=== PATIENT | female | born 1945 | race Caucasian/White ===

== ENCOUNTER 2016-07-05 16:42 | Observation (INO) | payer BC ==
[~2016-07-05] VITALS: Ht 165.1 cm; Wt 61.2 kg
[~2016-07-05 16:42] MED LIST: ASPI81TA28 PO; FISH OIL 1000MG PO; FLUT50SP14 NAE; GLUC500C4 PO; LEVO1TAB50 PO; LSN/2025 PO; MIRT30TA2 PO; RED600TA
[2016-07-05 18:03] LABS: BASO % 0.3 %; BASO ABS # 0.03 K/uL (0-0.2); COMPLETE YES; EOS % 2.2 %; HEMATOCRIT 36.7 % (37-47); IG% 0.1 %; LYMPH % 27.5 %; LYMPH ABS # 2.45 K/uL (1.2-3.4); MEAN CELL VOLUME 85.7 fL (80-100); MEAN CORPUSCULAR HEMOGLOBIN 29.7 pg (25-34); MEAN CORPUSCULAR HGB CONC 34.6 g/dl (32-36); MEAN PLATELET VOLUME 10.6 fL (7.4-10.4); MONO % 6.9 %; PLATELET COUNT 234 K/uL (130-400); RED BLOOD COUNT 4.28 M/uL (4.2-5.4)
[2016-07-05 18:04] LABS: URINE APPEARANCE CLEAR (CLEAR); URINE BILIRUBIN NEG (NEG); URINE COLOR YELLOW; URINE NITRITE NEG (NEG); URINE PH 5.5 (4.5-7.5); URINE SPECIFIC GRAVITY 1.005 (1.000-1.030); UROBILINOGEN NEG (NEG); ZZUR CULT IF INDIC CLEAN CATCH NO
[2016-07-05] MEDS ORDERED: FLUT0.15 NAE (18:04)
[2016-07-05 18:07] LABS: MANUAL MICROSCOPIC REQUIRED? NO; REVIEW REQ? NO
[2016-07-05] MEDS ORDERED: LEVO50TA6 PO (18:07)
[2016-07-05] MEDS ORDERED: VITA400C3 PO (18:11)
[2016-07-05] MEDS ORDERED: CAT PO (18:14)
[2016-07-05] MEDS ORDERED: REDTAB PO (18:15)
[2016-07-05 18:19] LABS: ALT/SGPT 25 U/L (12-78); BLOOD UREA NITROGEN 15 mg/dl (7-18); BUN/CREATININE RATIO 22.3 (10-20); CALCIUM 8.8 mg/dl (8.5-10.1); CARBON DIOXIDE 29 mmol/L (21-32); CHLORIDE 101 mmol/L (98-107); CREATININE 0.65 mg/dl (0.60-1.20); GLUCOSE 98 mg/dl (70-99); POTASSIUM 3.5 mmol/L (3.5-5.1); SODIUM 137 mmol/L (136-145)
[2016-07-05] MEDS ORDERED: CHOL1000 PO (18:19)
[2016-07-05] MEDS ORDERED: CALC-214 PO (18:22)
[2016-07-05] MEDS ORDERED: CALC500T64 (18:22)
[2016-07-05 18:24] LABS: ALKALINE PHOSPHATASE 115 U/L (45-117); AST/SGOT 15 U/L (15-37); CKMB/CK RATIO 0.9 (0-3.0)
[2016-07-05] MEDS ORDERED: MISC1CAP66 PO (18:24)
[2016-07-05] MEDS ORDERED: TURM500C2 PO (18:29)
[2016-07-05 18:30] LABS: INR 0.9 (0.9-1.1); PARTIAL THROMBOPLASTIN RATIO 1.1; PROTHROMBIN TIME (PATIENT) 9.9 SECONDS (9.0-12.0)
[2016-07-05] MEDS ORDERED: COEN100C6 PO (18:31)
[2016-07-05] MEDS ORDERED: CYAN500T PO (18:32)
[2016-07-05] MEDS ORDERED: ASCO100061 PO (18:33)
--- NOTE | 2016-07-05 18:53 | DIAGNOSTIC IMAGING REPORT ---
SINGLE VIEW CHEST CLINICAL HISTORY: Atypical chest pain. FINDINGS: An AP, portable, upright chest radiograph is compared to study dated 11/22/2011. The examination is degraded by portable technique and patient rotation. The heart is mildly enlarged and there is atherosclerotic calcification of the thoracic aorta. The pulmonary vasculature is noncongested. Chronic interstitial thickening is unchanged. No airspace consolidation, large pleural effusion, or Pneumothorax is seen. The skeletal structures are osteopenic. The bony thorax is grossly intact. IMPRESSION: Mild cardiac enlargement with no acute cardiopulmonary abnormality. Electronically signed by: Ortega Shrestha M.D. 07/05/2016 6:51 PM Dictated Date/Time: 07/05/2016 6:51 PM
[2016-07-05] MEDS ORDERED: NITROGLYCERIN 0.4 MG SL PER TAB CHARGE SL PRN (20:15)
[2016-07-05] MEDS ORDERED: MoRPHine SULFATE 2 MG/ML CARP IV PRN (20:15)
[2016-07-05] MEDS ORDERED: ACETAMINOPHEN 325 MG TAB PO PRN (20:15)
--- NOTE | 2016-07-05 20:22 | EMERGENCY ROOM VISIT NOTE ---
History Report prepared by Mitchell: Qian Forrest Under the Supervision of: Dr. Bruce Garrido M.D. First contact with patient: 17:20 Chief Complaint: CARDIAC ASSESSMENT Stated Complaint: COMPRESSION IN CHEST, RINGING EARS, DIZZY-REFERRED Nursing Triage Summary: Patient reports "lightheaded, nausea states this has been going on for weeks, I've had burning in my chest and thought it was indigestion, I took a prilosec for a couple days and now the burning is gone but I still feel dizzy and pressure in my neck and across my chest. History of Present Illness The patient is a 71 year old female who presents to the Emergency Room with complaints of persistent burning in her chest for the past couple of days. She reports the discomfort was most intense 3 days ago. She experienced a similar burning sensation in her chest about 1 year ago which was found to be indigestion. She found relief with Prilosec at the time. She has taken Prilosec for the past 2 days which has relieved much of the burning, but a sensation of pressure remains in her chest. She reports experiencing congestion or pressure in her ears and neck. She also reports feeling dizzy and lightheaded. She experienced some vertigo 1 week ago. Pt denies LOC, headache, fevers, chills, diaphoresis, visual changes, breathing difficulties, nausea, vomiting, abdominal pain, back pain, melena, hematochezia, urinary symptoms, numbness, lymphadenopathy, rash, or other complaints. Source of History: patient Onset: couple days ago Position: chest Quality: burning Timing: other (persistent) Modifying Factors (Relieving): other (Prilosec) Note: Pt reports dizziness, lightheadedness, pressure in neck and ears. Review of Systems See HPI for pertinent positives and negatives. A total of ten systems were reviewed and were otherwise negative. Past Medical & Surgical Medical Problems: (1) History of basal cell carcinoma (2) History of breast cancer (3) Hypercholesteremia (4) Hypertension (5) Hypothyroidism (6) Osteoporosis Surgical Problems: (1) Status post appendectomy (2) Status post colonoscopy (3) Status post partial mastectomy (4) Status post tonsillectomy Family History Heart disease Social History Smoking Status: Former Smoker Drug Use: none Marital Status: Occupation Status: employed Current/Historical Medications Scheduled Ascorbic Acid (Ascorbic Acid), 1,000 MG PO DAILY Aspirin (Aspirin Ec), 81 MG PO 3XWK Calcium W/ Magnesium (Calcium & Magnesium), 1 TAB PO DAILY Cat's Claw (Uncaria [place]) (Cats Claw), Unknown Dose PO DAILY Cholecalciferol (Vitamin D3), 1 TAB PO DAILY Coenzyme Q10 (Ubidecarenone) (Co-Enzyme Q10), 100 MG PO DAILY Cyanocobalamin (Vitamin B-12), 500 MCG PO DAILY Fluticasone Propionate (Nasal) (Flonase Allergy Relief), 2 SPRAYS SAHRA DAILY Glucosamine Sulfate (Glucosamine), 1 CAPSULES PO DAILY Hctz/Lisinopril (Zestoretic 20MG/25MG), 1 TAB PO DAILY Levothyroxine Sodium (Levothyroxine Sodium), 1 TAB PO DAILY Misc Natural Products (Joint Support), 1 CAP PO DAILY Red [place] Extract (Promensil), Unknown Dose PO DAILY Red Yeast Rice Extract (Red Yeast Rice), 600 DAILY Turmeric (Curcuma Longa) (Curcumin 95), Unknown Dose PO DAILY Vitamin E (Vitamin E 400 Iu), 400 INTER.UNIT PO DAILY [Fish Oil 1000MG], 1 CAPSULE PO DAILY Allergies Coded Allergies: No Known Allergies (Unverified , 07/05/16) Physical Exam Vital Signs Date Time Temp Pulse Resp B/P Pulse Ox O2 Delivery O2 Flow Rate FiO2 07/05/16 19:00 70 14 122/70 100 07/05/16 18:18 66 07/05/16 18:18 63 16 117/72 97 Room Air 07/05/16 18:17 97 Room Air 07/05/16 16:46 36.8 69 20 148/83 99 Room Air Physical Exam GENERAL: Awake, alert, well-appearing, in no distress HENT: Normocephalic, atraumatic. Oropharynx unremarkable. TMs are normal. EYES: Normal conjunctiva. Sclera non-icteric. NECK: Supple. No nuchal rigidity. FROM. No JVD. RESPIRATORY: Clear to auscultation. CARDIAC: Regular rate, normal rhythm. Extremities warm and well perfused. Pulses equal. ABDOMEN: Soft, non-distended. No tenderness to palpation. No rebound or guarding. No masses. RECTAL: Deferred. MUSCULOSKELETAL: Chest examination reveals no tenderness. The back is symmetrical on inspection without obvious abnormality. There is no CVA tenderness to palpation. No joint edema. LOWER EXTREMITIES: Calves are equal size bilaterally and non-tender. No edema. No discoloration. NEURO: Normal sensorium. No sensory or motor deficits noted. SKIN: No rash or jaundice noted. Medical Decision & Procedures ER Provider Diagnostic Interpretation: X ray results as stated below per my interpretation and radiologist interpretation. SINGLE VIEW CHEST CLINICAL HISTORY: Atypical chest pain. FINDINGS: An AP, portable, upright chest radiograph is compared to study dated 11/22/2011. The examination is degraded by portable technique and patient rotation. The heart is mildly enlarged and there is atherosclerotic calcification of the thoracic aorta. The pulmonary vasculature is noncongested. Chronic interstitial thickening is unchanged. No airspace consolidation, large pleural effusion, or Pneumothorax is seen. The skeletal structures are osteopenic. The bony thorax is grossly intact. IMPRESSION: Mild cardiac enlargement with no acute cardiopulmonary abnormality. Electronically signed by: Ortega Shrestha M.D. 07/05/2016 6:51 PM Dictated Date/Time: 07/05/2016 6:51 PM Laboratory Results 07/05/16 17:44 Red Blood Count 4.28, Mean Corpuscular Volume 85.7, Mean Corpuscular Hemoglobin 29.7, Mean Corpuscular Hemoglobin Concent 34.6, Mean Platelet Volume 10.6, Neutrophils (%) (Auto) 63.0, Lymphocytes (%) (Auto) 27.5, Monocytes (%) (Auto) 6.9, Eosinophils (%) (Auto) 2.2, Basophils (%) (Auto) 0.3, Neutrophils # (Auto) 5.60, Lymphocytes # (Auto) 2.45, Monocytes # (Auto) 0.61, Eosinophils # (Auto) 0.20, Basophils # (Auto) 0.03 07/05/16 17:44 Test 07/05/16 17:44 White Blood Count 8.90 K/uL (4.8-10.8) Red Blood Count 4.28 M/uL (4.2-5.4) Hemoglobin 12.7 g/dL (12.0-16.0) Hematocrit 36.7 % (37-47) Mean Corpuscular Volume 85.7 fL (80-100) Mean Corpuscular Hemoglobin 29.7 pg (25-34) Mean Corpuscular Hemoglobin Concent 34.6 g/dl (32-36) Platelet Count 234 K/uL (130-400) Mean Platelet Volume 10.6 fL (7.4-10.4) Neutrophils (%) (Auto) 63.0 % Lymphocytes (%) (Auto) 27.5 % Monocytes (%) (Auto) 6.9 % Eosinophils (%) (Auto) 2.2 % Basophils (%) (Auto) 0.3 % Neutrophils # (Auto) 5.60 K/uL (1.4-6.5) Lymphocytes # (Auto) 2.45 K/uL (1.2-3.4) Monocytes # (Auto) 0.61 K/uL (0.11-0.59) Eosinophils # (Auto) 0.20 K/uL (0-0.5) Basophils # (Auto) 0.03 K/uL (0-0.2) RDW Standard Deviation 43.0 fL (36.4-46.3) RDW Coefficient of Variation 13.7 % (11.5-14.5) Immature Granulocyte % (Auto) 0.1 % Immature Granulocyte # (Auto) 0.01 K/uL (0.00-0.02) Prothrombin Time 9.9 SECONDS (9.0-12.0) Prothromb Time International Ratio 0.9 (0.9-1.1) Activated Partial Thromboplast Time 27.3 SECONDS (21.0-31.0) Partial Thromboplastin Ratio 1.1 Urine Color YELLOW Urine Appearance CLEAR (CLEAR) Urine pH 5.5 (4.5-7.5) Urine Specific [place] 1.005 (1.000-1.030) Urine Protein NEG (NEG) Urine Glucose (UA) NEG (NEG) Urine Ketones NEG (NEG) Urine Occult Blood NEG (NEG) Urine Nitrite NEG (NEG) Urine Bilirubin NEG (NEG) Urine Urobilinogen NEG (NEG) Urine Leukocyte Esterase NEG (NEG) Anion Gap 7.0 mmol/L (3-11) Est Creatinine Clear Calc Drug Dose 71.4 ml/min Estimated GFR () 103.5 Estimated GFR (Non- 89.3 BUN/Creatinine Ratio 22.3 (10-20) Calcium Level 8.8 mg/dl (8.5-10.1) Total Bilirubin 0.4 mg/dl (0.2-1) Direct Bilirubin < 0.1 mg/dl (0-0.2) Aspartate Amino Transf (AST/SGOT) 15 U/L (15-37) Alanine Aminotransferase (ALT/SGPT) 25 U/L (12-78) Alkaline Phosphatase 115 U/L (45-117) Total Creatine Kinase 65 U/L (26-192) Creatine Kinase MB 0.6 ng/ml (0.5-3.6) Creatine Kinase MB Ratio 0.9 (0-3.0) Troponin I < 0.015 ng/ml (0-0.045) Total Protein 7.3 gm/dl (6.4-8.2) Albumin 3.5 gm/dl (3.4-5.0) Lipase 114 U/L (73-393) Laboratory results reviewed by me ECG Indication: weakness Rate (beats per minute): 64 Rhythm: normal sinus Findings: no acute ischemic change, no ectopy ED Course 1740: The patient was evaluated in room A12. A complete history and physical exam was performed. 1914: Upon reexamination, the patient was resting comfortably. I discussed the test results and treatment plan with her. She verbalized understanding and agreement. The patient will be evaluated for further management. 1954: I discussed the patient's case with Dr. Walker, [facility] - hospitalist. The patient will be evaluated for further treatment and disposition. Medical Decision Triage Nursing notes reviewed. The patient's presentation and history were concerning for chest discomfort. EtioloGies such as cardiac ischemia, aortic dissection, pulmonary embolism, pneumonia, pneumothorax, musculoskeletal, infections, gastrointestinal, as well as others were entertained. The patient was evaluated. She was doing well. Her examination did not reveal any focal findings. She had no dizziness that was reproducible. She is currently chest pain-free. ECG was nonischemic. CBC, chemistry panel, cardiac markers, LFTs and lipase were unremarkable. Chest imaging was unremarkable. The patient was reassessed. She is still chest pain-free. She has multiple cardiac risk factors as her father had coronary disease, she was a previous smoker, she also notes a history of high cholesterol and hypertension. Given all these findings I discussed further evaluation and management in the hospital. The patient was in agreement. Consultation was made with internal medicine. The patient was evaluated in the Emergency Room for further treatment. The chart was completed utilizing Dragon Speech voice recognition software. Grammatical errors, random word insertions, pronoun errors, and incomplete sentences are an occasional consequence of this system due to software limitations, ambient noise, and hardware issues. Any formal questions or concerns about the content, text, or information contained within the body of this dictation should be directly addressed to the physician for clarification. Consults Time Called: 1919 Consulting Physician: Tanja Harmon - hospitalist Returned Call: 1954 Discussed the patient's case. The patient will be evaluated for further treatment and disposition. Impression Primary Impression: Substernal chest pain Additional Impression: Fatigue Scribe Attestation The scribe's documentation has been prepared under my direction and personally reviewed by me in its entirety. I confirm that the note above accurately reflects all work, treatment, procedures, and medical decision making performed by me. Departure Information Dispostion Being Evaluated By Hospitalist Referrals Gayle Guillermo M.D. (PCP) Patient Instructions My [facility] Problem Qualifiers
--- NOTE | 2016-07-05 20:54 | History and Physical ---
History & Physical Date & Time of Service: Jul 05, 2016 at ~ 20:00 . Chief Complaint: chest pressure . Primary Care Physician: Gayle Guillermo M.D. . History of Present Illness Source: patient, clinic records, hospital records 71 [address]O female followed by Dr. Guillermo. History of hypertension, dyslipidemia, and other problems noted below. Stress echo 2014 showed good exercise tolerance and no evidence of stress- induced ischemia. Former smoker- quit several years ago. Physically active, walks 5-6 miles a day. Developed chest discomfort 4 days prior to admission. Symptoms started in the evening after eating lopes for dinner. Initially developed right-sided chest pressure which later seemed to spread across the center of her chest. [place] somewhat lightheaded. No associated dyspnea, nausea, vomiting, diaphoresis. Has had intermittent chest pressure since then, doesn't seem to be related to exertion. Took some omeprazole which may have helped some. Risk factors for ischemic heart disease: hypertension, dyslipidemia, former smoker, family history. . Past Medical/Surgical History Chronic Medical Problems: (1) History of basal cell carcinoma Status: Chronic (2) History of breast cancer Permanent Comment: left breast, s/p lumpectomy + XRT 1985 Status: Chronic (3) Hypercholesteremia Status: Chronic (4) Hypertension Status: Chronic (5) Hypothyroidism Status: Chronic (6) Osteoporosis Status: Chronic Surgical Problems: (1) Status post appendectomy Status: Chronic (2) Status post colonoscopy Status: Chronic (3) Status post partial mastectomy Permanent Comment: left breast 1985 Status: Chronic (4) Status post tonsillectomy Status: Chronic . Family History FATHER Coronary artery disease Parkinson's disease MOTHER Breast cancer GRANDMOTHER Colon cancer AUNT Stroke UNCLE Heart disease Social History Smoking Status: Former Smoker Alcohol Use: occasionally Drug Use: none Marital Status: Occupational Status: employed Immunizations History of Influenza Vaccine: Yes History of Pneumococcal: Yes Multi-Drug Resistant Organisms History of MDRO: No Allergies Coded Allergies: No Known Allergies (Unverified , 07/05/16) Home Medications Scheduled Ascorbic Acid (Ascorbic Acid), 1,000 MG PO DAILY Aspirin (Aspirin Ec), 81 MG PO 3XWK Calcium W/ Magnesium (Calcium & Magnesium), 1 TAB PO DAILY Cat's Claw (Uncaria Tomentosa) (Cats Claw), Unknown Dose PO DAILY Cholecalciferol (Vitamin D3), 1 TAB PO DAILY Coenzyme Q10 (Ubidecarenone) (Co-Enzyme Q10), 100 MG PO DAILY Cyanocobalamin (Vitamin B-12), 500 MCG PO DAILY Fluticasone Propionate (Nasal) (Flonase Allergy Relief), 2 SPRAYS SAHRA DAILY Glucosamine Sulfate (Glucosamine), 1 CAPSULES PO DAILY Hctz/Lisinopril (Zestoretic 20MG/25MG), 1 TAB PO DAILY Levothyroxine Sodium (Levothyroxine Sodium), 1 TAB PO DAILY Misc Natural Products (Joint Support), 1 CAP PO DAILY Red [place] Extract (Promensil), Unknown Dose PO DAILY Red Yeast Rice Extract (Red Yeast Rice), 600 DAILY Turmeric (Curcuma Longa) (Curcumin 95), Unknown Dose PO DAILY Vitamin E (Vitamin E 400 Iu), 400 INTER.UNIT PO DAILY [Fish Oil 1000MG], 1 CAPSULE PO DAILY Review of Systems Constitutional: No chills, No fever, No weight loss Eyes: No worsening of vision ENT: + problem reported (URI + vertigo ~ 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) Respiratory: No cough, No shortness of breath, No wheezing Cardiovascular: + problem reported (as noted above in HPI) Abdomen: No GI bleeding, No diarrhea, No nausea, No pain, No vomiting Musculoskeletal: + joint pain (hands + shoulders) Genitourinary - Female: + urinary incontinence (stress incontinence), No dysuria, No hematuria Neurologic: + vertigo (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, resolved), No weakness Endocrine: No excessive thirst, No excessive urination Hematologic / Lymphatic: No abnormal bleeding/bruising, No swollen lymph nodes Integumentary: No itch, No new/changing skin lesions, No rash Allergic / Immunologic: + seasonal allergies Physical Exam Vital Signs Date Time Temp Pulse Resp B/P Pulse Ox O2 Delivery O2 Flow Rate FiO2 07/05/16 20:18 70 16 117/72 100 07/05/16 19:00 70 14 122/70 100 07/05/16 18:18 66 07/05/16 18:18 63 16 117/72 97 Room Air 07/05/16 18:17 97 Room Air 07/05/16 16:46 36.8 69 20 148/83 99 Room Air General Appearance: WD/WN, no apparent distress Head: normocephalic, atraumatic Eyes: normal inspection, PERRL, EOMI, sclerae normal (conjunctivae pink) ENT: normal ENT inspection, hearing grossly normal, pharynx normal Neck: supple, no adenopathy, thyroid normal, no JVD, trachea midline Respiratory/Chest: lungs clear, no accessory muscle use Cardiovascular: regular rate, rhythm, no edema, no gallop, no JVD, no murmur, normal peripheral pulses, + pertinent finding (carotids 2/2 bilat without bruits ) Abdomen/GI: normal bowel sounds, non tender, soft, no organomegaly, no pulsatile mass Extremities/Musculoskelatal: normal inspection, no calf tenderness, normal capillary refill, no pedal edema Neurologic/Psych: trimming department blocker II-XII nml as tested (PERRL, EOMI, no facial palsy, no dysarthria), no motor/sensory deficits (motor strength extremities intact), alert, normal mood/affect, oriented x 3 Skin: normal color, warm/dry, no rash Lymphatic: no adenopathy Diagnostics Laboratory Results Results Past 24 Hours Test 07/05/16 17:44 Range/Units White Blood Count 8.90 4.8-10.8 K/uL Red Blood Count 4.28 4.2-5.4 M/uL Hemoglobin 12.7 12.0-16.0 g/dL Hematocrit 36.7 37-47 % Mean Corpuscular Volume 85.7 80-100 fL Mean Corpuscular Hemoglobin 29.7 25-34 pg Mean Corpuscular Hemoglobin Concent 34.6 32-36 g/dl Platelet Count 234 130-400 K/uL Mean Platelet Volume 10.6 7.4-10.4 fL Neutrophils (%) (Auto) 63.0 % Lymphocytes (%) (Auto) 27.5 % Monocytes (%) (Auto) 6.9 % Eosinophils (%) (Auto) 2.2 % Basophils (%) (Auto) 0.3 % Neutrophils # (Auto) 5.60 1.4-6.5 K/uL Lymphocytes # (Auto) 2.45 1.2-3.4 K/uL Monocytes # (Auto) 0.61 0.11-0.59 K/uL Eosinophils # (Auto) 0.20 0-0.5 K/uL Basophils # (Auto) 0.03 0-0.2 K/uL RDW Standard Deviation 43.0 36.4-46.3 fL RDW Coefficient of Variation 13.7 11.5-14.5 % Immature Granulocyte % (Auto) 0.1 % Immature Granulocyte # (Auto) 0.01 0.00-0.02 K/uL Prothrombin Time 9.9 9.0-12.0 SECONDS Prothromb Time International Ratio 0.9 0.9-1.1 Activated Partial Thromboplast Time 27.3 21.0-31.0 SECONDS Partial Thromboplastin Ratio 1.1 Urine Color YELLOW Urine Appearance CLEAR CLEAR Urine pH 5.5 4.5-7.5 Urine Specific [place] 1.005 1.000-1.030 Urine Protein NEG NEG Urine Glucose (UA) NEG NEG Urine Ketones NEG NEG Urine Occult Blood NEG NEG Urine Nitrite NEG NEG Urine Bilirubin NEG NEG Urine Urobilinogen NEG NEG Urine Leukocyte Esterase NEG NEG Sodium Level 137 136-145 mmol/L Potassium Level 3.5 3.5-5.1 mmol/L Chloride Level 101 98-107 mmol/L Carbon Dioxide Level 29 21-32 mmol/L Anion Gap 7.0 3-11 mmol/L Blood Urea Nitrogen 15 7-18 mg/dl Creatinine 0.65 0.60-1.20 mg/dl Est Creatinine Clear Calc Drug Dose 71.4 ml/min Estimated GFR () 103.5 Estimated GFR (Non- 89.3 BUN/Creatinine Ratio 22.3 10-20 Random Glucose 98 70-99 mg/dl Calcium Level 8.8 8.5-10.1 mg/dl Total Bilirubin 0.4 0.2-1 mg/dl Direct Bilirubin < 0.1 0-0.2 mg/dl Aspartate Amino Transf (AST/SGOT) 15 15-37 U/L Alanine Aminotransferase (ALT/SGPT) 25 12-78 U/L Alkaline Phosphatase 115 45-117 U/L Total Creatine Kinase 65 26-192 U/L Creatine Kinase MB 0.6 0.5-3.6 ng/ml Creatine Kinase MB Ratio 0.9 0-3.0 Troponin I < 0.015 0-0.045 ng/ml Total Protein 7.3 6.4-8.2 gm/dl Albumin 3.5 3.4-5.0 gm/dl Lipase 114 73-393 U/L Diagnostic Radiology Chest x-ray reviewed by the undersigned and interpreted by Radiology: SINGLE VIEW CHEST FINDINGS: An AP, portable, upright chest radiograph is compared to study dated 11/22/2011. The examination is degraded by portable technique and patient rotation. The heart is mildly enlarged and there is atherosclerotic calcification of the thoracic aorta. The pulmonary vasculature is noncongested. Chronic interstitial thickening is unchanged. No airspace consolidation, large pleural effusion, or Pneumothorax is seen. The skeletal structures are osteopenic. The bony thorax is grossly intact. IMPRESSION: Mild cardiac enlargement with no acute cardiopulmonary abnormality. Electronically signed by: Ortega Shrestha M.D. 07/05/2016 6:51 PM . EKG EKG performed at 16:53 reviewed and demonstrated NSR at 60 / minute, no acute ST or T-wave abnormalities. . Impression Assessment and Plan CHEST PAIN Multiple risk factors for ischemic heart disease. However, symptoms are not typical for ischemic pain. Troponin in ED normal. No acute EKG changes. Check serial troponins and EKG's. Consider stress test in a.m. if acute UT ruled out. Consider GI etiology of symptoms. LFT's and lipase normal. Consider further GI evaluation if symptoms persist and cardiac w/u negative. Ongoing risk factor modification. Check lipid profile. CARDIOMEGALY Noted on chest x-ray. Check rest echo. HYPERTENSION Continue lisinopril / HCTZ. DYSLIPIDEMIA Check lipid profile. Patient would prefer not to take statins. Continue dietary management and supplements. HYPOTHYROIDISM Check TSH. VTE PROPHYLAXIS Low risk for VTE. SQ enoxaparin. Ambulate. RESUSCITATION STATUS Discussed with patient. She has a living will. She would like resuscitation attempted in the event of a cardiopulmonary arrest if there is a reasonable chance of a meaningful recovery, but does not want prolonged extraordinary measures if prognosis is poor. Therefore, code status = "Level 1" (full resuscitation). DISPOSITION Observation status on Telemetry Unit. Expected discharge to home. Family Medicine follow-up with Dr. Guillermo. . VTE Prophylaxis VTE Risk Assessment Done? Y/N: Yes Risk Level: Low Given or contraindicated: Enoxaparin (Lovenox)SQ
[2016-07-05 21:05] VITALS: BP 160/88; PULSE 63; TEMP 36.8; O2SAT 99; Ht 165.1 cm; Wt 61.2 kg
[2016-07-05] MEDS ORDERED: IV FLUIDS COMPLETED PRN (22:45)
[2016-07-05 23:18] VITALS: BP 126/69; PULSE 69; TEMP 36.6; O2SAT 99
[2016-07-06 00:01] VITALS: O2SAT 99
[2016-07-06 04:28] VITALS: BP 118/74; PULSE 66; TEMP 36.6; O2SAT 98
[2016-07-06] MEDS ORDERED: LEVOTHYROXINE 50 MCG TAB PO SCH (06:00)
[2016-07-06 06:15] LABS: CHOLESTEROL 201 mg/dl (0-200); CHOLESTEROL/HDL RATIO 3.3; HDL CHOLESTEROL 61 mg/dl; LDL CHOLESTEROL CALCULATED 122 mg/dl; TRIGLYCERIDES 92 mg/dl (0-150); VERY LOW DENSITY LIPOPROT CALC 18 mg/dl
[2016-07-06 07:54] VITALS: BP 96/64; PULSE 85; TEMP 36.5; O2SAT 96
[2016-07-06 08:09] VITALS: BP 100/51; PULSE 56; TEMP 36.5; O2SAT 97
[2016-07-06] MEDS ORDERED: LISINOPRIL/HCTZ 20/25MG TAB PO SCH ×2 (09:00→21:00)
[2016-07-06] MEDS ORDERED: ENOXAPARIN 40 MG/0.4 ML SYR SC SCH (09:00)
[2016-07-06] MEDS ORDERED: PANTOprazole SOD 40 MG TAB PO SCH (09:00)
[2016-07-06] MEDS ORDERED: ASPIRIN 81 MG ECTAB PO SCH (09:00)
--- NOTE | 2016-07-06 11:23 | Progress Note ---
Internal Med Progress Note Date of Service: Jul 06, 2016. Provider Documentation: SUBJECTIVE: Patient is doing well. Chest pain has resolved. Just came back from stress test No nausea, vomiting, heart burn, diarrhea, abdominal pain, SOB. Eager to be discharged home OBJECTIVE: Vital Signs-as noted below Exam: General-AAOX3, no distress Neck-Supple Lungs-AEBE, no wheezing, crackles Heart-S1, S2 normal, No murmurs Abdomen- Soft, non tender, non distended, BS present Extremities-No edema Lab data as noted below. ASSESSMENT & PLAN: CHEST PAIN, ATYPICAL : Resolved Multiple risk factors for ischemic heart disease. Possibly GERD ? -S/P Stress Echo today -EKG X 2- no acute changes, Troponin x 3- negative -Lipid panel : LDL -122 CARDIOMEGALY Noted on chest x-ray. -Echo done- follow up official results HYPERTENSION -Stable -Continue lisinopril / HCTZ. DYSLIPIDEMIA Patient would prefer not to take statins. -Continue dietary management and supplements. -LDL - 122 HYPOTHYROIDISM TSH- Normal VTE PROPHYLAXIS Low risk for VTE. -SQ enoxaparin. -Ambulate. RESUSCITATION STATUS Discussed with patient by Dr Walker. She has a living will. She would like resuscitation attempted in the event of a cardiopulmonary arrest if there is a reasonable chance of a meaningful recovery, but does not want prolonged extraordinary measures if prognosis is poor. Therefore, code status = "Level 1" (full resuscitation). DISPOSITION Observation status on Telemetry Unit. Eager to be discharged home today Family Medicine follow-up with Dr. Guillermo. . Vital Signs: Date Time Temp Pulse Resp B/P Pulse Ox O2 Delivery O2 Flow Rate FiO2 07/06/16 08:45 Room Air 07/06/16 08:09 36.5 56 18 100/51 97 Room Air 07/06/16 07:54 36.5 85 20 96/64 96 Nasal Cannula 2.0 07/06/16 04:28 36.6 66 18 118/74 98 07/06/16 04:00 Room Air 07/06/16 00:01 99 Room Air 07/05/16 23:18 36.6 69 16 126/69 99 Room Air 07/05/16 21:05 36.8 63 18 160/88 99 Room Air 07/05/16 20:18 70 16 117/72 100 07/05/16 19:00 70 14 122/70 100 07/05/16 18:18 66 07/05/16 18:18 63 16 117/72 97 Room Air 07/05/16 18:17 97 Room Air 07/05/16 16:46 36.8 69 20 148/83 99 Room Air Lab Results: Results Past 24 Hours Test 07/05/16 17:44 07/05/16 22:37 07/06/16 05:04 Range/Units White Blood Count 8.90 4.8-10.8 K/uL Red Blood Count 4.28 4.2-5.4 M/uL Hemoglobin 12.7 12.0-16.0 g/dL Hematocrit 36.7 37-47 % Mean Corpuscular Volume 85.7 80-100 fL Mean Corpuscular Hemoglobin 29.7 25-34 pg Mean Corpuscular Hemoglobin Concent 34.6 32-36 g/dl Platelet Count 234 130-400 K/uL Mean Platelet Volume 10.6 7.4-10.4 fL Neutrophils (%) (Auto) 63.0 % Lymphocytes (%) (Auto) 27.5 % Monocytes (%) (Auto) 6.9 % Eosinophils (%) (Auto) 2.2 % Basophils (%) (Auto) 0.3 % Neutrophils # (Auto) 5.60 1.4-6.5 K/uL Lymphocytes # (Auto) 2.45 1.2-3.4 K/uL Monocytes # (Auto) 0.61 0.11-0.59 K/uL Eosinophils # (Auto) 0.20 0-0.5 K/uL Basophils # (Auto) 0.03 0-0.2 K/uL RDW Standard Deviation 43.0 36.4-46.3 fL RDW Coefficient of Variation 13.7 11.5-14.5 % Immature Granulocyte % (Auto) 0.1 % Immature Granulocyte # (Auto) 0.01 0.00-0.02 K/uL Prothrombin Time 9.9 9.0-12.0 SECONDS Prothromb Time International Ratio 0.9 0.9-1.1 Activated Partial Thromboplast Time 27.3 21.0-31.0 SECONDS Partial Thromboplastin Ratio 1.1 Urine Color YELLOW Urine Appearance CLEAR CLEAR Urine pH 5.5 4.5-7.5 Urine Specific [place] 1.005 1.000-1.030 Urine Protein NEG NEG Urine Glucose (UA) NEG NEG Urine Ketones NEG NEG Urine Occult Blood NEG NEG Urine Nitrite NEG NEG Urine Bilirubin NEG NEG Urine Urobilinogen NEG NEG Urine Leukocyte Esterase NEG NEG Sodium Level 137 136-145 mmol/L Potassium Level 3.5 3.5-5.1 mmol/L Chloride Level 101 98-107 mmol/L Carbon Dioxide Level 29 21-32 mmol/L Anion Gap 7.0 3-11 mmol/L Blood Urea Nitrogen 15 7-18 mg/dl Creatinine 0.65 0.60-1.20 mg/dl Est Creatinine Clear Calc Drug Dose 71.4 ml/min Estimated GFR () 103.5 Estimated GFR (Non- 89.3 BUN/Creatinine Ratio 22.3 10-20 Random Glucose 98 70-99 mg/dl Calcium Level 8.8 8.5-10.1 mg/dl Total Bilirubin 0.4 0.2-1 mg/dl Direct Bilirubin < 0.1 0-0.2 mg/dl Aspartate Amino Transf (AST/SGOT) 15 15-37 U/L Alanine Aminotransferase (ALT/SGPT) 25 12-78 U/L Alkaline Phosphatase 115 45-117 U/L Total Creatine Kinase 65 26-192 U/L Creatine Kinase MB 0.6 0.5-3.6 ng/ml Creatine Kinase MB Ratio 0.9 0-3.0 Troponin I < 0.015 < 0.015 < 0.015 0-0.045 ng/ml Total Protein 7.3 6.4-8.2 gm/dl Albumin 3.5 3.4-5.0 gm/dl Lipase 114 73-393 U/L Triglycerides Level 92 0-150 mg/dl Cholesterol Level 201 0-200 mg/dl HDL Cholesterol 61 mg/dl LDL Cholesterol, Calculated 122 mg/dl VLDL Cholesterol, Calculated 18 mg/dl Cholesterol/HDL Ratio 3.3 Thyroid Stimulating Hormone (TSH) 1.490 0.300-4.500 uIu/ml
--- NOTE | 2016-07-06 11:32 | Discharge Instructions ---
Discharge Instructions Date of Service Jul 06, 2016. Admission Reason for Admission: Chest Pain Discharge Discharge Diagnosis / Problem: 1. Chest pain, acute ischemia ruled out Discharge Goals Goal(s): Diagnostic testing, Therapeutic intervention Activity Recommendations Activity Limitations: resume your previous activity . Instructions / Follow-Up Instructions / Follow-Up No changes in medications FOLLOW UP 1. Follow up with Dr Gayle Guillermo on 07/09/16 at 12:50 PM Current Hospital Diet Patient's current hospital diet: AHA Diet (Heart Healthy) Discharge Diet Recommended Diet: AHA Diet (Heart Healthy), Low Sodium Diet (2gm Na) Pending Studies Studies pending at discharge: no Laboratory Results Lipid Panel Test 07/06/16 05:04 Range/Units Triglycerides Level 92 0-150 mg/dl Cholesterol Level 201 H 0-200 mg/dl HDL Cholesterol 61 mg/dl Cholesterol/HDL Ratio 3.3 LDL Cholesterol, Calculated 122 mg/dl Medical Emergencies . Who to Call and When: Medical Emergencies: If at any time you feel your situation is an emergency, please call 911 immediately. . Non-Emergent Contact Non-Emergency issues call your: Primary Care Provider . . "Provider Documentation" section prepared by Eliza Murphy. VTE Core Measure Inpt VTE Proph given/why not?: Enoxaparin (Lovenox)SQ
--- NOTE | 2016-07-06 11:35 | Discharge Summary ---
Discharge Summary Date of Service Jul 06, 2016. Discharge Summary Admission Date: Jul 05, 2016 at 20:04 Discharge Date: Jul 06, 2016 Discharge Disposition: Home Principal Diagnosis: 1. Chest pain, acute ischemia ruled out Secondary Diagnoses/Problems: 1. HTN 2. Dyslipidemia 3. Hypothyroidism Procedures: Tele monitoring Stress Echo Serial EKG Serial Troponin Consultations: None Pending Studies/Follow-Up: No changes in medications FOLLOW UP Dr Gayle Guillermo on 07/09/16 at 12:50 PM Admission Information HPI (per Admitting provider): 71 YO female followed by Dr. Guillermo. History of hypertension, dyslipidemia, and other problems noted below. Stress echo 2014 showed good exercise tolerance and no evidence of stress- induced ischemia. Former smoker- quit several years ago. Physically active, walks 5-6 miles a day. Developed chest discomfort 4 days prior to admission. Symptoms started in the evening after eating lopes for dinner. Initially developed right-sided chest pressure which later seemed to spread across the center of her chest. [place] somewhat lightheaded. No associated dyspnea, nausea, vomiting, diaphoresis. Has had intermittent chest pressure since then, doesn't seem to be related to exertion. Took some omeprazole which may have helped some. Risk factors for ischemic heart disease: hypertension, dyslipidemia, former smoker, family history. . Physical Exam (per Admitting): General Appearance: WD/WN, no apparent distress Head: normocephalic, atraumatic Eyes: normal inspection, PERRL, EOMI, sclerae normal (conjunctivae pink) ENT: normal ENT inspection, hearing grossly normal, pharynx normal Neck: supple, no adenopathy, thyroid normal, no JVD, trachea midline Respiratory/Chest: lungs clear, no accessory muscle use Cardiovascular: regular rate, rhythm, no edema, no gallop, no JVD, no murmur , normal peripheral pulses, + pertinent finding (carotids 2/2 bilat without bruits) Abdomen/GI: normal bowel sounds, non tender, soft, no organomegaly, no pulsatile mass Extremities/Musculoskelatal: normal inspection, no calf tenderness, normal capillary refill, no pedal edema 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 Possibly GERD ? -S/P Stress Echo today- Discussed results with Dr Mi verbally- did well achieved 85% max predicted HR on treadmill, no ischemia , but did have atypical chest pain at the end of test (official results pending). Given the fact that chest pain is atypical, EKG X 2 neg, Trop x 3 negative, no reversible ischemia noted on stress echocardiogram, unlikely to be cardiac -Lipid panel : LDL -122 CARDIOMEGALY Noted on chest x-ray. -Echo done- follow up official results HYPERTENSION -Stable -Continue lisinopril / HCTZ. DYSLIPIDEMIA Patient would prefer not to take statins. -Continue dietary management and supplements. -LDL - 122 HYPOTHYROIDISM TSH- Normal VTE PROPHYLAXIS Low risk for VTE. -SQ enoxaparin. -Ambulate. RESUSCITATION STATUS Discussed with patient by Dr Wakler. She has a living will. She would like resuscitation attempted in the event of a cardiopulmonary arrest if there is a reasonable chance of a meaningful recovery, but does not want prolonged extraordinary measures if prognosis is poor. Therefore, code status = "Level 1" (full resuscitation). DISPOSITION Observation status on Telemetry Unit. Ok to be discharged home Eager to be discharged home Family Medicine follow-up with Dr. Guillermo. . Total time spent on discharge = 25 minutes This includes examination of the patient, discharge planning, medication reconciliation, and communication with other providers. Discharge Instructions Discharge Diagnosis / Problem: 1. Chest pain, acute ischemia ruled out Discharge Goals Goal(s): Diagnostic testing, Therapeutic intervention Activity Recommendations Activity Limitations: resume your previous activity . Instructions / Follow-Up Instructions / Follow-Up No changes in medications FOLLOW UP 1. Follow up with Dr Gayle Guillermo on 07/09/16 at 12:50 PM Current Hospital Diet Patient's current hospital diet: AHA Diet (Heart Healthy) Discharge Diet Recommended Diet: AHA Diet (Heart Healthy), Low Sodium Diet (2gm Na) Pending Studies Studies pending at discharge: no Laboratory Results Lipid Panel Test 07/06/16 05:04 Range/Units Triglycerides Level 92 0-150 mg/dl Cholesterol Level 201 H 0-200 mg/dl HDL Cholesterol 61 mg/dl Cholesterol/HDL Ratio 3.3 LDL Cholesterol, Calculated 122 mg/dl Medical Emergencies . Who to Call and When: Medical Emergencies: If at any time you feel your situation is an emergency, please call 911 immediately. . Non-Emergent Contact Non-Emergency issues call your: Primary Care Provider . . "Provider Documentation" section prepared by Eliza Murphy. VTE Core Measure Inpt VTE Proph given/why not?: Enoxaparin (Lovenox)SQ
[2016-07-06 11:56] VITALS: BP 100/51; PULSE 56; TEMP 36.5; O2SAT 97
--- NOTE | 2016-07-06 12:56 | EXERCISE STRESS ECHO ---
*NOTICE TO RECEIVING CONSTITUTION PARTY AGENCY This information is strictly Confidential and protected under [place] law. [place] law prohibits you from making any further disclosure of this information unless further disclosure is expressly permitted by the written consent of the person to whom it pertains or is authorized by law. A general authorization for the release of medical or other information is not sufficient for this purpose. Hospital accepts no responsibility if the information is made available to any other person, INCLUDING THE PATIENT. Interpretation Summary * Name: TAD MATHUR Study Date: 07/06/2016 09:02 AM BP: 111/62 mmHg * Patient Location: C.2T\S\S229\S\1 HR: 62 * : 1945 (M/d/yyyy) Gender: Female Height: 780 in * Age: 71 yrs Ethnicity: CA Weight: 140 lb * Ordering Physician: Bruce Walker * Referring Physician: Gayle Guillermo * Performed By: Lisseth Malloy RCS * * Reason For Study: CHEST PAIN * BSA: 10.3 m2 * STRESS STUDY: Normal exercise stress echocardiogram. No echocardiographic or ECG evidence of myocardial ischemia having achieved heart rate adequate for diagnostic purposes. * -- Conclusions -- * The left ventricle is normal in size. * Left ventricular systolic function is normal. * Ejection Fraction = 60-65%. * STRESS STUDY: Normal exercise stress echocardiogram. No echocardiographic or ECG evidence of myocardial ischemia having achieved heart rate adequate for diagnostic purposes. Procedure Details * ECHOEX, CPT #[id number] * ECHO COLOR FLOW, CPT #[id number] * ECHO DOPPLER, CPT #[id number] Left Ventricle * The left ventricle is normal in size. * There is normal left ventricular wall thickness. * Ejection Fraction = 60-65%. * Left ventricular systolic function is normal. * The left ventricular wall motion is normal. Right Ventricle * The right ventricle is normal size. * The right ventricular systolic function is normal. Atria * The left atrial size is normal. * Right atrial size is normal. * The interatrial septum is intact with no evidence for an atrial septal defect. Mitral Valve * The mitral valve is normal in structure and function. Tricuspid Valve * The tricuspid valve is normal in structure and function. Aortic Valve * The aortic valve is normal in structure and function. Pulmonic Valve * The pulmonic valve is not well visualized. * Trace pulmonic valvular regurgitation. Great Vessels * The aortic root and proximal ascending aorta are normal sized. Pericardium * Incidental trivial pericardial effusion. Stress Parameters * Normal baseline electrocardiogram. * Stress ECG: No ST changes. No arrhythmias. * Atypical chest pain during exercise. * The stress portion of this study was personally supervised by the undersigned interpreting physician. * Rest heart rate was '62' BPM. * Rest blood pressure was '111/62' * Maximum heart rate achieved was 131 bpm. * Maximum heart rate was 87 % of maximum age-predicted heart rate. * Maximum blood pressure was '207/67' * Total exercise time was '9:23' * Maximum exercise MET level achieved was '10.7' METS * Maximum treadmill speed was '4.2' miles per hour. * Maximum treadmill elevation was '16'% grade. MMode 2D Measurements and Calculations IVSd 0.94 cm IVSs 1.1 cm LVIDd 4.0 cm LVIDs 2.5 cm LVPWd 0.89 cm LVPWs 1.2 cm IVS/LVPW 1.1 FS 38.8 % EDV(Teich) 70.4 ml ESV(Teich) 21.3 ml EF(Teich) 69.8 % EDV(cubed) 64.5 ml ESV(cubed) 14.7 ml EF(cubed) 77.1 % % IVS thick 15.8 % % LVPW thick 30.3 % LV mass(C)d 112.7 grams LV mass(C)dI 10.9 grams/m\S\2 LV mass(C)s 74.7 grams LV mass(C)sI 7.3 grams/m\S\2 CO(Teich) 2.7 l/min CI(Teich) 0.26 l/min/m\S\2 SV(Teich) 49.1 ml SI(Teich) 4.8 ml/m\S\2 CO(cubed) 2.7 l/min CI(cubed) 0.26 l/min/m\S\2 SV(cubed) 49.7 ml SI(cubed) 4.8 ml/m\S\2 Ao root diam 2.5 cm Ao root area 5.1 cm\S\2 ACS 1.4 cm LA dimension 2.9 cm LA/Ao 1.1 LVAd ap4 29.8 cm\S\2 LVLd ap4 8.3 cm EDV(MOD-sp4) 87.0 ml LVAs ap4 14.4 cm\S\2 LVLs ap4 6.8 cm ESV(MOD-sp4) 26.0 ml EF(MOD-sp4) 70.1 % LVAd ap2 25.1 cm\S\2 LVLd ap2 7.6 cm EDV(MOD-sp2) 69.0 ml LVAs ap2 12.3 cm\S\2 LVLs ap2 5.7 cm ESV(MOD-sp2) 25.0 ml EF(MOD-sp2) 63.8 % CO(MOD-sp4) 3.3 l/min CI(MOD-sp4) 0.32 l/min/m\S\2 SV(MOD-sp4) 61.0 ml SI(MOD-sp4) 5.9 ml/m\S\2 CO(MOD-sp2) 2.4 l/min CI(MOD-sp2) 0.23 l/min/m\S\2 SV(MOD-sp2) 44.0 ml SI(MOD-sp2) 4.3 ml/m\S\2 Doppler Measurements and Calculations MV E max selma 84.9 cm/sec MV A max selma 79.0 cm/sec MV E/A 1.1 MV P1/2t max selma 93.5 cm/sec MV P1/2t 57.8 msec MVA(P1/2t) 3.8 cm\S\2 MV dec slope 473.5 cm/sec\S\2 MV dec time 0.24 sec Ao V2 max 150.7 cm/sec Ao max PG 9.1 mmHg Ao max PG (full) 3.5 mmHg LV V1 max PG 5.6 mmHg LV V1 max 117.8 cm/sec PA V2 max 85.3 cm/sec PA max PG 2.9 mmHg PI max selma 158.2 cm/sec PI max PG 10.0 mmHg PI dec slope 173.2 cm/sec\S\2 PI P1/2t 267.6 msec TR max selma 222.8 cm/sec
== END 2016-07-06 12:05 | disposition home or self-care (01) ==
LOC: ENRESERVDT → ENRESERVTM → C.EDB 16:44 → C.2T 20:04
PROVIDERS: ADMIT Hospitalist; ATTEND Internal Medicine
DX: R07.89 Other chest pain (principal); I10 Essential (primary) hypertension; E03.9 Hypothyroidism, unspecified; E78.5 Hyperlipidemia, unspecified; E78.00 Pure hypercholesterolemia, unspecified; M81.0 Age-related osteoporosis without current pathological fracture; Z85.3 Personal history of malignant neoplasm of breast; Z90.49 Acquired absence of other specified parts of digestive tract; Z90.12 Acquired absence of left breast and nipple; Z85.828 Personal history of other malignant neoplasm of skin; Z87.891 Personal history of nicotine dependence; Z84.1 Family history of disorders of kidney and ureter; Z80.0 Family history of malignant neoplasm of digestive organs; Z80.3 Family history of malignant neoplasm of breast; Z82.49 Family history of ischemic heart disease and other diseases of the circulatory system; Z79.899 Other long term (current) drug therapy; Z79.82 Long term (current) use of aspirin